=== PATIENT | male | born 1995 | race Caucasian/White ===

== ENCOUNTER 2016-08-20 08:47 | Emergency (ER) | payer BC ==
[2016-08-20 09:09] VITALS: BP 109/70
--- NOTE | 2016-08-20 11:31 | UC ---
Skin Complaint HPI - HPI Summary HPI Summary: NOTICED MILDLY TENDER LUMP IN LEFT GROIN 2 DAYS AGO THE DAY AFTER HAVING SEX. NO DRAINAGE. NO FEVER. NO H/O SKIN INFECTIONS OR ABSCESSES. DOES NOT SHAVE HIS GENITAL REGION. - History of Current Complaint Chief Complaint: UCLowerExtremity Time Seen by Provider: 08/20/16 10:45 Stated Complaint: LUMP IN GROIN Hx Obtained From: Patient Onset/Duration: Sudden Onset, Lasting Days, Still Present Timing: Constant Onset Severity: Moderate Current Severity: Moderate Pain Intensity: 5 Pain Scale Used: 0-10 Numeric Location: Other - LEFT GROIN Character: Pain, Redness, Raised Aggravating: Touch Alleviating: Nothing Associated Signs & Symptoms: Positive: Tenderness - Allergy/Home Medications Allergies/Adverse Reactions: Allergies Allergy/AdvReac Type Severity Reaction Status Date / Time No Known Allergies Allergy Verified 08/20/16 09:04 Home Medications: Home Medications Multiple Vitamins W/ Minerals [Multivitamin Adults] 1 tab PO DAILY 08/20/16 [ History Confirmed 08/20/16] Review of Systems Constitutional: Negative Skin: Other - TENDER, RED LUMP LEFT GROIN Respiratory: Negative Cardiovascular: Negative Gastrointestinal: Negative All Other Systems Reviewed And Are Negative: Yes PMH/Surg Hx/FS Hx/Imm Hx Previously Healthy: Yes Endocrine History Of: Denies: Diabetes, Thyroid Disease Cardiovascular History Of: Denies: Cardiac Disorders, Hypertension Respiratory History Of: Denies: COPD, Asthma GI/ History Of: Denies: Ulcer - Surgical History Surgical History: None - Family History Known Family History: Positive: Diabetes Family History: No cardio vascular issues in family - Social History Alcohol Use: Rare Substance Use Type: Marijuana Substance Use Comment - Amount & Last Used: states rarely Smoking Status (MU): Never Smoked Tobacco Physical Exam Triage Information Reviewed: Yes Appearance: Well-Appearing, No Pain Distress, Well-Nourished Vital Signs: Initial Vital Signs Temp 98.2 F 08/20/16 08:55 Pulse 62 08/20/16 08:55 Resp 16 08/20/16 08:55 BP 109/70 08/20/16 08:55 Pulse Ox 100 08/20/16 08:55 Vital Signs Reviewed: Yes Eyes: Positive: Conjunctiva Clear ENT: Positive: Hearing grossly normal Neck: Positive: Supple Respiratory: Positive: No respiratory distress, No accessory muscle use Cardiovascular: Positive: Pulses Normal Abdomen Description: Positive: Soft Musculoskeletal: Positive: No Edema Neurological: Positive: Alert Psychological: Positive: Age Appropriate Behavior Skin: Positive: Other - 1.5CM MILDLY TENDER ERYTHEMATOUS AREA OF INDURATION LEFT GROIN. NO FLUCTUANCE. GENITALIA NORMAL. NO PENILE D/C OR LESIONS. Course/Dx - Diagnoses Provider Diagnoses: CELLULITIS - LEFT GROIN Discharge - Discharge Plan Condition: Stable Disposition: HOME Prescriptions: Cephalexin CAP* [Keflex 500 CAP*] 1,000 mg PO BID #[id number] cap Patient Education Materials: Cellulitis (ED) Referrals: Jamal Elizabeth NP [Primary Care Provider] - If Needed Additional Instructions: KEEP CLEAN AND DRY ABLE. AVOID CHAFFING ABLE. SEEK FOLLOW-UP IF YOU ARE NOT IMPROVING EXPECTED OVER THE NEXT WEEK.
== END 2016-08-20 11:41 | disposition home or self-care (01) ==
LOC: UCEAST 08:47
DX: L03.314 Cellulitis of groin (principal)
CPT/HCPCS: 99212; G0463